=== PATIENT | female | born 1960 | race Asian ===

== ENCOUNTER 2017-02-13 15:49 | Emergency (ER) | payer MEDICAID ==
[~2017-02-13] VITALS: Ht 154.9 cm; Wt 52.0 kg
[~2017-02-13 15:49] MED LIST: ACET1TAB25 PO; B-12 PO; DOCU-174 PO; ESOM40CA PO; FERR-89 PO; LEVE500T53 PO; METO50TA5 PO; VITAD1000 PO
[2017-02-13] MEDS ORDERED: BACITRACIN 0.9 GM PACKET OINTMENT TP ONE (16:45)
[2017-02-13 17:18] VITALS: BP 147/75
== END 2017-02-13 17:27 | disposition home or self-care (01) ==
LOC: EMS 15:50
DX: S01.01XA Laceration without foreign body of scalp, initial encounter (principal); E78.00 Pure hypercholesterolemia, unspecified; Z98.890 Other specified postprocedural states; Z91.81 History of falling; W08.XXXA Fall from other furniture, initial encounter; Y93.89 Activity, other specified; Y92.89 Other specified places as the place of occurrence of the external cause; Y99.8 Other external cause status
CPT/HCPCS: 12002; 70450; 99284

== ENCOUNTER 2017-03-03 09:25 | Emergency (ER) | payer MEDICAID ==
[~2017-03-03] VITALS: Ht 154.9 cm; Wt 51.5 kg
[2017-03-03 10:14] VITALS: BP 123/61
== END 2017-03-03 11:08 | disposition home or self-care (01) ==
LOC: EMS 09:26
DX: Z48.02 Encounter for removal of sutures (principal); E78.00 Pure hypercholesterolemia, unspecified; Z88.8 Allergy status to other drugs, medicaments and biological substances
CPT/HCPCS: 99281

== ENCOUNTER 2022-08-20 12:37 | Emergency (ER) | payer MEDICAID ==
[~2022-08-20] VITALS: Ht 152.4 cm; Wt 56.8 kg
[~2022-08-20 12:37] MED LIST changes: +CHOL100018 PO; -DOCU-174 PO; +DOCU100C34 PO; -FERR-89 PO; +FERR325T27 PO; +LEVE500T20 PO; -LEVE500T53 PO; +METO50TA18 PO; -METO50TA5 PO; -VITAD1000 PO
[2022-08-20 12:56] LABS: GLUCOMETER DEV NAME(LOC) ERT.5; GLUCOSE,POINT OF CARE 147 MG/DL (70-110)
[2022-08-20 15:05] LABS: BASOPHILS % (AUTO) 0.6 % (0.0-2.0); CALCIUM, TOTAL 10.1 mg/dL (8.8-10.5); CREATININE 1.02 mg/dL (0.60-1.30); EOSINOPHILS % (AUTO) 0.4 % (1.0-6.0); HEMATOCRIT 35.1 % (36-46); HEMOGLOBIN 10.7 g/dL (12.0-16.0); LYMPHOCYTES # (AUTO) 1.6 K/uL (1.0-4.8); LYMPHOCYTES % (AUTO) 29.2 % (22.0-44.0); MEAN CORPUSCULAR HEMOGLOBIN 21.2 pg (26.0-34.0); MEAN CORPUSCULAR HGB CONC 30.5 G/dL (31.0-37.0); MEAN CORPUSCULAR VOLUME 70 fL (80-100); MONOCYTES # (AUTO) 0.4 K/uL (0.1-1.0); MONOCYTES % (AUTO) 6.8 % (2.0-9.0); NEUTROPHILS # (AUTO) 3.5 K/uL (1.8-7.7); PLATELET COUNT (AUTO) 314 K/uL (150-450); POTASSIUM 4.7 mmol/L (3.5-5.1); RED BLOOD CELL COUNT(AUTO) 5.05 MIL/uL (4.00-5.20); RED CELL DISTRIBUTION WIDTH 15.1 % (11.5-14.5)
[2022-08-20 15:07] LABS: PROTHROMBIN TIME 10.3 SEC (9.4-11.6)
[2022-08-20 15:09] LABS: CREATINE KINASE, TOTAL ONLY 35 U/L (26-192)
[2022-08-20 15:11] LABS: ALBUMIN 3.9 g/dL (3.4-5.0); BILIRUBIN,TOTAL 0.2 mg/dL (0.1-1.0); TOTAL PROTEIN, SERUM 7.4 g/dL (6.4-8.2)
[2022-08-20 15:13] LABS: B-TYPE NATRIURETIC PEPTIDE 19 pg/mL (0-100)
[2022-08-20 15:40] VITALS: BP 135/66
[2022-08-20] MEDS ORDERED: BACITRACIN 0.9 GM PACKET OINTMENT TP ONE (15:45)
== END 2022-08-20 16:30 | disposition home or self-care (01) ==
LOC: EMS 12:41
DX: S01.412A Laceration without foreign body of left cheek and temporomandibular area, initial encounter (principal); F41.9 Anxiety disorder, unspecified; E11.622 Type 2 diabetes mellitus with other skin ulcer; L97.829 Non-pressure chronic ulcer of other part of left lower leg with unspecified severity; F32.A Depression, unspecified; E78.00 Pure hypercholesterolemia, unspecified; Z98.890 Other specified postprocedural states; Z88.8 Allergy status to other drugs, medicaments and biological substances; W19.XXXA Unspecified fall, initial encounter; Y93.9 Activity, unspecified; Y92.9 Unspecified place or not applicable; Y99.9 Unspecified external cause status
CPT/HCPCS: 70450; 71045; 80053; 82550; 82962; 83880; 84484; 85025; 85610; 85730; 93005; 99285; 36415-L1; 36415-TC

== ENCOUNTER 2023-07-12 09:52 | Emergency (ER) | payer MEDICAID ==
[~2023-07-12] VITALS: Ht 167.6 cm; Wt 56.8 kg
[2023-07-12 10:00] VITALS: TEMP 97.9
[2023-07-12] MEDS ORDERED: LISI10TA24 PO (10:19)
[2023-07-12] MEDS ORDERED: FERR325T23 PO (10:19)
[2023-07-12] MEDS ORDERED: EZET10TA57 PO (10:19)
[2023-07-12] MEDS ORDERED: OMEP40CA21 PO (10:19)
[2023-07-12] MEDS ORDERED: LEVE750T10 PO (10:19)
[2023-07-12] MEDS ORDERED: ASPI-1444 PO (10:19)
[2023-07-12] MEDS ORDERED: FENO145T26 PO (10:19)
[2023-07-12] MEDS ORDERED: METF-1211 PO (10:19)
[2023-07-12 10:33] LABS: BASOPHILS % (AUTO) 0.4 % (0.0-2.0); HEMATOCRIT 35.6 % (36-46); LYMPHOCYTES # (AUTO) 1.6 K/uL (1.0-4.8); MEAN CORPUSCULAR HEMOGLOBIN 21.5 pg (26.0-34.0); MEAN CORPUSCULAR VOLUME 70 fL (80-100); MONOCYTES # (AUTO) 0.5 K/uL (0.1-1.0); MONOCYTES % (AUTO) 7.1 % (2.0-9.0); NEUTROPHILS # (AUTO) 4.3 K/uL (1.8-7.7); NEUTROPHILS % (AUTO) 66.5 % (40.0-70.0); PLATELET COUNT (AUTO) 347 K/uL (150-450); RED BLOOD CELL COUNT(AUTO) 5.13 MIL/uL (4.00-5.20); RED CELL DISTRIBUTION WIDTH 14.9 % (11.5-14.5); WHITE BLOOD COUNT (AUTO) 6.4 K/uL (4.5-11.0)
[2023-07-12] MEDS ORDERED: SODIUM CHLORIDE 0.9% 1,000 ML IV ONE (10:45)
[2023-07-12] MEDS ORDERED: LevETIRAcetam 750 MG in DEXTROSE 5%-WATER 100 ML IV ONE (10:45)
[2023-07-12 10:48] LABS: CALCIUM, TOTAL 9.7 mg/dL (8.8-10.5); CREATININE 0.98 mg/dL (0.60-1.30); POTASSIUM 3.7 mmol/L (3.5-5.1)
[2023-07-12 10:55] LABS: ALBUMIN 4.1 g/dL (3.4-5.0); BILIRUBIN,TOTAL 0.3 mg/dL (0.1-1.0); TOTAL PROTEIN, SERUM 7.9 g/dL (6.4-8.2)
[2023-07-12 10:56] LABS: TROPONIN I-HIGH SENSITIVITY 4 ng/L (<51)
[2023-07-12 11:19] LABS: RBC MORPHOLOGY COMMENT ABNORMAL RBC MORPH
[2023-07-12] MEDS ORDERED: ONDANSETRON HCL 4 MG/2 ML VIAL IVP ONE (12:15)
[2023-07-12 13:49] LABS: PROTHROMBIN TIME 10.2 SEC (9.4-11.6)
[2023-07-12] MEDS ORDERED: IOHEXOL 350 MG/ML 100 ML VIAL ONE (14:56)
[2023-07-12] MEDS ORDERED: SODIUM CHLORIDE 0.9% 100 ML ONE (14:57)
[2023-07-12 20:20] VITALS: BP 111/65; PULSE 81; RESP 16
[2023-07-13 00:39] LABS: APPEARANCE,URINE CLEAR (CLEAR); BILIRUBIN,URINE NEGATIVE (NEGATIVE); COLOR,URINE LIGHT YELLOW (YELLOW); GLUCOSE, URINE (UA) NEGATIVE (NEGATIVE); KETONES,URINE NEGATIVE (NEGATIVE); LEUKOCYTE ESTERASE ,URINE TRACE (NEGATIVE); NITRATE,URINE NEGATIVE (NEGATIVE); OCCULT BLOOD,URINE NEGATIVE (NEGATIVE); PH,URINE 6.5 (5.0-8.0); PROTEIN,URINE NEGATIVE (NEGATIVE); SPECIFIC GRAVITIY, URINE 1.013 (1.003-1.030); UROBILINOGEN,URINE <=1.0 mg/dL (<=1.0)
[2023-07-13 00:45] LABS: BACTERIA,URINE None Seen /HPF (None Seen); RBC,URINE None Seen /HPF (0-2); SQUAMOUS EPITHELIAL CELL,UR Few /LPF (None Seen); WBC,URINE 0-2 /HPF (0-5)
== END 2023-07-12 21:02 | disposition short-term general hospital (02) ==
LOC: EMS 10:02
DX: R07.9 Chest pain, unspecified (principal); I61.9 Nontraumatic intracerebral hemorrhage, unspecified; R11.2 Nausea with vomiting, unspecified; F41.9 Anxiety disorder, unspecified; F32.A Depression, unspecified; E78.00 Pure hypercholesterolemia, unspecified; Z98.890 Other specified postprocedural states; Z88.8 Allergy status to other drugs, medicaments and biological substances
CPT/HCPCS: 99291; 70450; 96365; 96375; 80053; 81001; 83690; 84484; 85025; 85610; 85730; 36415; 70496; 70498; 93005; J0712; J2405; Q9967; J7060; J7030; J7050